=== PATIENT | female | born 1950 | race Caucasian/White ===

== ENCOUNTER 2017-06-04 09:35 | Day surgery (SDC) | payer OTHER ==
[~2017-06-04 09:35] MED LIST: AMOX1TAB5 PO; DICY20TA PO; INTESTINEX1 CA1 PO; Levsin/Sl 0.125 MG TAB.SUBL SL
== END 2017-06-04 13:40 | disposition home or self-care (01) ==
LOC: AMB-ENDOS 09:35
DX: K57.30 Diverticulosis of large intestine without perforation or abscess without bleeding (principal); K64.8 Other hemorrhoids

== ENCOUNTER 2019-10-27 07:15 | Day surgery (SDC) | payer OTHER | END 2019-10-27 12:15 | disposition home or self-care (01) | LOC: AMB-ENDOS 07:15 → CIR.AMB 09:00 → AMB-ENDOS 12:15 | PROVIDERS: ATTEND Surgery | DX: D12.3 Benign neoplasm of transverse colon (principal); D13.2 Benign neoplasm of duodenum; K29.50 Unspecified chronic gastritis without bleeding; K44.9 Diaphragmatic hernia without obstruction or gangrene; Z20.828 Contact with and (suspected) exposure to other viral communicable diseases ==